=== PATIENT | female | born 1990 | race Caucasian/White ===

== ENCOUNTER → 2018-03-04 | Outpatient (CLI) | payer OTHER ==
[2018-03-04 14:01] LABS: BASO # 0.1 10^3/uL (0.0-0.2); BASO % 0.7 % (0.0-1.0); EOS # 0.1 10^3/uL (0.0-0.50); EOS % 0.9 % (0.0-3.0); HEMATOCRIT 39.3 % (36.0-47.0); HEMOGLOBIN 13.1 g/dl (12.0-15.5); IMMATURE GRANULOCYTE % 0.6 % (0-3.0); LYMPH # 2.1 10^3/uL (1.5-6.5); LYMPH % 25.5 % (24.0-44.0); MEAN CORPUSCULAR HGB CONC 33.3 g/dl (32.0-36.5); MEAN CORPUSCULAR VOLUME 93.1 fl (80.0-96.0); MONO # 0.7 10^3/uL (0.0-0.8); MONO % 8.7 % (0.0-5.0); NEUTROPHILS # 5.2 10^3/uL (1.8-7.7); NEUTROPHILS % 63.6 % (36.0-66.0); PLATELET COUNT, AUTOMATED 339 10^3/uL (150-450); RED BLOOD COUNT 4.22 10^6/uL (4.00-5.40); RED CELL DISTRIBUTION WIDTH 11.9 % (11.5-14.5); WHITE BLOOD COUNT 8.2 10^3/uL (4.0-10.0)
[2018-03-04 17:27] LABS: CHLAMYDIA DNA AMPLIFICATION NEGATIVE (NEGATIVE); GC DNA AMPLIFICATION NEGATIVE (NEGATIVE)
[2018-03-05 12:44] LABS: RUBELLA IgG QUALITATIVE IMMUNE (IMMUNE)
[2018-03-05 13:03] LABS: HBsAg Prenatal NEGATIVE (NEGATIVE)
[2018-03-05 13:14] LABS: HEPATITIS C VIRUS ABY INDEX < 0.0 INDEX (<0.8)
[2018-03-05 13:15] LABS: HIV 1&2 SCREEN CENTAUR NEGATIVE (NEGATIVE)
== END ==
LOC: M SMT 09:56
DX: Z34.81 Encounter for supervision of other normal pregnancy, first trimester (principal); Z3A.10 10 weeks gestation of pregnancy
CPT/HCPCS: 86762

== ENCOUNTER → 2018-05-21 | Outpatient (CLI) | payer OTHER | LOC: M RAD 14:21 | DX: Z34.82 Encounter for supervision of other normal pregnancy, second trimester (principal) | CPT/HCPCS: 76817 ==

== ENCOUNTER → 2018-06-09 | Outpatient (CLI) | payer OTHER | LOC: M RAD 15:19 | DX: Z34.82 Encounter for supervision of other normal pregnancy, second trimester (principal) | CPT/HCPCS: 76816 ==

== ENCOUNTER → 2018-07-05 | Outpatient (CLI) | payer OTHER ==
[2018-07-05 13:14] LABS: BASO # 0.1 10^3/uL (0.0-0.2); BASO % 0.5 % (0.0-1.0); EOS # 0.1 10^3/uL (0.0-0.50); EOS % 0.8 % (0.0-3.0); HEMATOCRIT 36.6 % (36.0-47.0); HEMOGLOBIN 12.2 g/dl (12.0-15.5); IMMATURE GRANULOCYTE % 0.8 % (0-3.0); LYMPH # 1.6 10^3/uL (1.5-6.5); MEAN CORPUSCULAR HEMOGLOBIN 30.7 pg (27.0-33.0); MEAN CORPUSCULAR HGB CONC 33.3 g/dl (32.0-36.5); MEAN CORPUSCULAR VOLUME 92.2 fl (80.0-96.0); MONO # 0.4 10^3/uL (0.0-0.8); MONO % 3.9 % (0.0-5.0); NEUTROPHILS # 7.4 10^3/uL (1.8-7.7); PLATELET COUNT, AUTOMATED 299 10^3/uL (150-450); RED BLOOD COUNT 3.97 10^6/uL (4.00-5.40); RED CELL DISTRIBUTION WIDTH 12.4 % (11.5-14.5); WHITE BLOOD COUNT 9.6 10^3/uL (4.0-10.0)
[2018-07-05 13:34] LABS: GLUCOSE CHALLENGE TEST 1 HOUR 159 MG/DL (LESS THAN 140)
== END ==
LOC: M SMT 09:06
DX: Z34.82 Encounter for supervision of other normal pregnancy, second trimester (principal)
CPT/HCPCS: 82950

== ENCOUNTER → 2018-08-30 | Outpatient (REF) | payer OTHER | LOC: M LAB REF 17:09 | DX: Z34.83 Encounter for supervision of other normal pregnancy, third trimester (principal) ==

== ENCOUNTER 2018-09-13 05:48 | Inpatient (IN) | payer OTHER ==
[2018-09-13] MEDS: OXYTOCIN INJ 10 UNITS/ML VIAL (J2590) IM (06:08)
[2018-09-13] MEDS: OXYTOCIN DRIP 30 UNITS in APPROPRIATE DILUENT 1 EA IV (06:15)
[2018-09-13] MEDS ORDERED: OXYTOCIN 30 UNITS IN 0.9% NaCl 500ML IV BAG (J2590) As Ordered (06:16)
[2018-09-13] MEDS ORDERED: DOCUSATE SODIUM 100 MG CAP PO (07:15)
[2018-09-13] MEDS ORDERED: METHYLERGONOVINE MALEATE 0.2 MG TAB PO (07:15)
[2018-09-13] MEDS ORDERED: ANUSOL HC CREAM 30GM TOP (07:15)
[2018-09-13] MEDS ORDERED: DIBUCAINE 1% OINTMENT 30GM TOP (07:15)
[2018-09-13] MEDS ORDERED: MOM 30ML SUSPENSION UDC PO (07:15)
[2018-09-13] MEDS: IBUPROFEN 800 MG TAB PO ×2 (07:41→22:25)
[2018-09-13] MEDS: PRENATAL VITAMINS CHEWABLE TABLET PO (09:00)
[2018-09-13] MEDS: MEASLES,MUMPS,RUBELLA VACCINE INJ (MMR-II) (90707) SC (09:33)
[2018-09-13] MEDS: RHOGAM 300 MCG (1500 IU) INJ (J2790) IM (09:33)
[2018-09-13] MEDS: ACETAMINOPHEN 500 MG TAB PO (14:09)
[2018-09-14] MEDS: ACETAMINOPHEN 500 MG TAB PO (05:25)
[2018-09-14] MEDS: PRENATAL VITAMINS CHEWABLE TABLET PO (08:11)
[2018-09-14] MEDS: INFLUENZA QUADRIVALENT PF VACCINE 0.5ML SYRINGE (90686) IM (09:00)
[2018-09-14] MEDS: IBUPROFEN 800 MG TAB PO (18:11)
[2018-09-15] MEDS: PRENATAL VITAMINS CHEWABLE TABLET PO (08:41)
== END 2018-09-15 11:34 | disposition home or self-care (01) | DRG 560 ==
LOC: M LDO 05:48 → M LDI 06:04 → M OBS 09:20
PROVIDERS: Obstetrics & Gynecology
PROC: 10E0XZZ Delivery of Products of Conception, External Approach (ICD-10-PCS; principal; 2018-09-13)
DX: O80 Encounter for full-term uncomplicated delivery (principal); Z37.0 Single live birth; Z3A.37 37 weeks gestation of pregnancy

== ENCOUNTER → 2019-04-12 | Outpatient (CLI) | payer OTHER ==
[~2019-04-12] MED LIST: IBUP-1114 PO; MAPA500T2 PO; PRENTAB9 PO
--- NOTE | 2019-04-12 16:45 | REP ---
MR THORACIC SPINE WITHOUT CONTRAST: HISTORY: Back pain. A small central disc protrusion is present at the T8-9 level. This abuts the spinal cord. The T8 neural foramina are patent. A small right paracentral disc protrusion is present at the T9-10 level. This abuts the spinal cord. The T9 neural foramina are patent. A small left paracentral disc protrusion is present at the T10-11 level. There is minimal effacement of the thecal sac without spinal cord compression. The T10 neural foramina are patent. There is no other disc bulge or herniation. The remaining neural foramina are patent. The spinal cord is normal in signal intensity. There is an old compression fracture of the T11 vertebral body with mild height loss. There is no subluxation. Increased signal intensity on T2 weighted images is present in the endplates of the T11 and 12 vertebral bodies. This represents degenerative change. IMPRESSION:1. Small disc protrusion at the T8-9 through T10-11 levels without spinal cord compression. 2. Old T11 compression fracture with mild height loss. Electronically Signed by Ron Peacock MD 04/12/2019 04:59 P
== END ==
LOC: M RAD 15:13
PROVIDERS: ATTEND Family Medicine
DX: S22.060D Wedge compression fracture of T7-T8 vertebra, subsequent encounter for fracture with routine healing (principal); X58.XXXD Exposure to other specified factors, subsequent encounter; Y92.9 Unspecified place or not applicable; M51.24 Other intervertebral disc displacement, thoracic region

== ENCOUNTER → 2019-10-27 | Outpatient (REF) | payer OTHER | LOC: M SFHCWAGY 17:29 | PROVIDERS: ATTEND Obstetrics & Gynecology | DX: Z01.419 Encounter for gynecological examination (general) (routine) without abnormal findings (principal) ==

== ENCOUNTER → 2020-08-13 | Outpatient (CLI) | payer OTHER ==
[2020-08-13 16:28] LABS: BASO % 0.5 % (0.0-1.0); EOS # 0.1 10^3/uL (0.0-0.5); EOS % 0.6 % (0.0-3.0); HEMATOCRIT 41.4 % (36.0-47.0); HEMOGLOBIN 13.5 g/dl (12.0-15.5); LYMPH # 1.9 10^3/uL (1.5-5.0); LYMPH % 24.7 % (24.0-44.0); MEAN CORPUSCULAR HEMOGLOBIN 30.3 pg (27.0-33.0); MEAN CORPUSCULAR HGB CONC 32.6 g/dl (32.0-36.5); MONO # 0.5 10^3/uL (0.0-0.8); MONO % 6.4 % (0.0-5.0); NEUTROPHILS # 5.3 10^3/uL (1.5-8.5); NEUTROPHILS % 67.2 % (36.0-66.0); PLATELET COUNT, AUTOMATED 379 10^3/uL (150-450); RED BLOOD COUNT 4.45 10^6/uL (4.00-5.40); WHITE BLOOD COUNT 7.8 10^3/uL (4.0-10.0)
[2020-08-13 17:22] LABS: HEPATITIS C VIRUS ABY INDEX 0.1 INDEX (<0.8); HIV 1&2 SCREEN CENTAUR NEGATIVE (NEGATIVE)
== END ==
LOC: M PLALAB 12:30
PROVIDERS: ATTEND Advanced Practice Midwife
DX: Z34.91 Encounter for supervision of normal pregnancy, unspecified, first trimester (principal); Z3A.00 Weeks of gestation of pregnancy not specified

== ENCOUNTER → 2020-10-09 | Outpatient (CLI) | payer OTHER ==
--- NOTE | 2020-10-09 10:16 | REP ---
INDICATION: ANATOMY. TECHNIQUE: Real-time sonographic evaluation of the gravid uterus performed. FINDINGS: Estimated gestational age is18 weeks 4 days, EDC 03/08/2021. Today's measurements indicate appropriate growth. Presentation: Transverse, head maternal right side Placenta anterior, grade 0, without evidence of placenta previa. heart rate is recorded at 143 beats per minute. Amniotic fluid is subjectively normal. Closed cervical length is measured at 4.6 cm. Several anterior uterine fibroids are visualized. Largest measures 5.7 x 6.0 x 4.6 cm. Four others demonstrate maximum diameters of 3.4 cm, 4.1 cm, 3.1 cm and 2.7 cm. Biometry chart: BPD: 41 mm, 18 weeks 3 days, 46th percentile. HC: 156 mm, 18 weeks 4 days, 47th percentile AC: 129 mm, 18 weeks 3 days, 47th percentile Femur length: 28 mm, 18 weeks 3 days, 47th percentile HC to AC ratio: 1.20, normal range 1.07-1.26. Estimated weight: 242g, 38th percentile. anatomy: Cranium: Grossly normal Lateral Ventricles/Choroid Plexus: There are bilateral choroid plexus cysts. These measure approximately 8 x 4 and 7 x 4 mm. There is no dilatation of lateral ventricles. Posterior Fossa/Cerebellum: Grossly normal Nose/lips/profile: Not well visualized due to position. Four chamber heart: Grossly normal Right ventricular outflow tract: Grossly normal Left ventricular outflow tract: Grossly normal Left-sided stomach: Grossly normal Kidneys: Not well visualized due to position. Bladder: Grossly normal Cord Insertion: Grossly normal 3 vessel cord: Grossly normal Spine: Not well visualized due to position. IMPRESSION: Viable single intrauterine gestation as above. <Electronically signed by Nitish Navarro > 10/09/20 [id number]
== END ==
LOC: M WHC 07:53
PROVIDERS: ATTEND Advanced Practice Midwife
DX: O34.12 Maternal care for benign tumor of corpus uteri, second trimester (principal); Z3A.18 18 weeks gestation of pregnancy

== ENCOUNTER → 2020-10-22 | Outpatient (CLI) | payer OTHER ==
--- NOTE | 2020-10-22 10:39 | REP ---
INDICATION: F/U ANATOMY. On the of previous ultrasound dated 10/09/2020 there were bilateral choroid plexus cysts, and the spine was not optimally visualized, and the nose/lips and kidneys were not optimally visualized. The remainder of the anatomy was satisfactorily visualized and unremarkable. . COMPARISON: 10/09/2020. TECHNIQUE: Multiple real-time ultrasonographic images. FINDINGS: On the study today, there are again bilateral choroid plexus cysts. However, today there appear to be 2 small cysts on one side measuring approximately 4 mm in diameter each, and a single cyst on the opposite side, today measuring 3 x 4 mm. The facial profile and upper lip are unremarkable today. The kidneys are unremarkable. The transverse images of the spine are again limited. Multiple uterine fibroids are again identified, today we identify 3 fibroids as follows: Anterior: 6.1 x 6.6 x 3.5 cm. Anterior: 3.7 x 3.0 x 1.8 cm. Anterior/left: 4.2 x 4.1 x 3.8 cm. The study today is again limited by patient body habitus, position, and multiple uterine fibroids. There is a single intrauterine gestation in a cephalic presentation. Placenta is anterior and grade 1. There is no previa. The heart rate is 134 beats per minute. The composite ultrasound gestational age his 20 weeks 5 days. The SHANA is 03/06/2021. Estimated weight is 407 g / 0 lb, 14 oz. This is the 56th percentile for 20 weeks 3 days. IMPRESSION: Bilateral choroid plexus cysts as described. Limited transverse images of the spine. Multiple uterine fibroids are again identified. The facial profile, upper lip and kidneys are unremarkable. <Electronically signed by Nitish Chao > 10/22/20 [id number]
== END ==
LOC: M WHC 08:07
PROVIDERS: ATTEND Obstetrics & Gynecology
DX: O34.12 Maternal care for benign tumor of corpus uteri, second trimester (principal); Z3A.20 20 weeks gestation of pregnancy

== ENCOUNTER 2020-11-15 23:30 | Inpatient (IN) | payer OTHER ==
[2020-11-15 23:34] VITALS: BP 151/87
[2020-11-15] MEDS ORDERED: MAG Sulf (OBGYN) 20GM/500ML 20,000 MG in IV 1 EA IV SCH (23:50)
[2020-11-16] MEDS ORDERED: AZITHROMYCIN 250MG TABLET PO ONE
[2020-11-16] MEDS ORDERED: BETAMETHASONE SOLUSPAN 6MG/ML 5ML VIAL (J0702 PER 3MG) IM SCH
[2020-11-16] MEDS ORDERED: MAG Sulf (L&D) 4 GM/100 ML 4 GM in IV 1 EA IV ONE ×2
[2020-11-16] MEDS ORDERED: AMPICILLIN SOD 2 GM in D5W MINI-BAG PLUS 100 ML IV SCH ×2
[2020-11-16] MEDS ORDERED: ceFAZolin 2 GM/D5W 50 ML IV BAG (J0690 PER 500MG) As Ordered ONE (00:18)
[2020-11-16] MEDS ORDERED: KETOROLAC 60MG 2ML VIAL As Ordered ONE (00:30)
[2020-11-16] MEDS ORDERED: propofoL 200 MG/20 ML VIAL As Ordered ONE (00:30)
[2020-11-16] MEDS ORDERED: fentaNYL 100 MCG/2 ML INJECTION (J3010) As Ordered ONE ×3 (00:30→01:25)
[2020-11-16] MEDS ORDERED: ONDANSETRON 4MG/2ML VIAL As Ordered ONE (00:30)
[2020-11-16] MEDS ORDERED: MIDAZOLAM INJ 2MG/2ML VIAL (J2250 PER 1MG) As Ordered ONE (00:30)
[2020-11-16 00:31] LABS: CORD GAS ABE V -3.6; CORD GAS HCO3 A 22.4 MEQ/L; CORD GAS HCO3 V 21.8 MEQ/L; CORD GAS O2 SAT A 96.9 %; CORD GAS O2 SAT V 92.8 %; CORD GAS PCO2 A 41.5 mmHg; CORD GAS PCO2 V 40.8 mmHg; CORD GAS PH A 7.351 UNITS; CORD GAS PH V 7.346 UNITS; CORD GAS PO2 A 65.4 mmHg; CORD GAS PO2 V 52.1 mmHg; CORD GAS SBC V 21.4 MEQ/L; CORD GAS TCO2 A 23.7 MEQ/L; CORD GAS TCO2 V 23.1 MEQ/L
[2020-11-16] MEDS ORDERED: METOCLOPRAMIDE INJ 10MG/2ML VIAL (J2765 PER 1) As Ordered ONE (00:31)
[2020-11-16] MEDS ORDERED: dexameTHASONE 4 MG/ML 1ML VIAL (J1100 PER 1MG) As Ordered ONE (00:31)
[2020-11-16] MEDS ORDERED: LR 1,000 ML IV SCH ×3 (01:03→01:30)
[2020-11-16] MEDS: fentaNYL 100 MCG/2 ML INJECTION (J3010) IV PRN ×4 (01:05→01:30)
[2020-11-16] MEDS ORDERED: OXYTOCIN DRIP 30 UNITS in IV 1 EA IV SCH (01:07)
[2020-11-16] MEDS ORDERED: MEASLES,MUMPS,RUBELLA VACCINE INJ (MMR-II) (90707) SC SCH (01:15)
[2020-11-16] MEDS ORDERED: PERCOCET 5MG/325MG TAB PO PRN ×2 (01:15→01:30)
[2020-11-16] MEDS ORDERED: MORPHINE 4 MG/ML 1ML VIAL/SYRINGE (J2270) IV PRN (01:15)
[2020-11-16] MEDS ORDERED: DOCUSATE SODIUM 100MG CAPSULE PO PRN (01:15)
[2020-11-16] MEDS ORDERED: RHOGAM 300 MCG (1500 IU) INJ (J2790) IM SCH (01:15)
[2020-11-16] MEDS ORDERED: ONDANSETRON 4MG/2ML VIAL IV PRN (01:30)
[2020-11-16] MEDS ORDERED: KETOROLAC 30 MG/ML 1ML VIAL IV PRN (01:30)
[2020-11-16] MEDS ORDERED: OXYTOCIN 30 UNITS IN 0.9% NaCl 500ML IV BAG (J2590) As Ordered ONE (01:33)
--- NOTE | 2020-11-16 01:38 | REPVR ---
PROCEDURE INFORMATION: Exam: XR Abdomen, 1 View Exam date and time: 11/16/2020 1:01 AM Age: 30 years old Clinical indication: Screening exam; Post surgical status; Emergency , no instrument count; Additional info: No count, stat c section TECHNIQUE: Imaging protocol: XR of the abdomen. Views: Frontal supine view of the abdomen. 1 View. COMPARISON: No relevant prior studies available. FINDINGS: Limitations: Upper abdomen is partially cut off the film. Gastrointestinal tract: Copious stool in the colon. No abnormal bowel dilatation. Bones/joints: Unremarkable. Radiopaque foreign body: No surgical instrument, lap sponge or surgical needle seen. IMPRESSION: 1. No surgical instrument, lap sponge or surgical needle seen. 2. Copious stool in the colon. Electronically signed by: Leslee Ontiveros On 11/16/2020 01:38:28 AM
--- NOTE | 2020-11-16 01:39 | HPEPDOC ---
Obstetrical History & Physical General Date of Admission Nov 16, 2020 at 00:06 History of Present Illness 30 yo at 23 6/7 weeks gestation by LMP c/w 10 week ultrasound (EDC=03/08/2020 presents by ambulance after experiencing a gush of fluid per vagina, followed by vaginal bleeding. She passed several clots. She had mild lower abdominal cramping. The incident occurred at about 10:30 pm on the day of admission. Information Provided By: Patient Care Care: Good Care Number of Visits: 3 Dating Final EDC: Mar 08, 2021 Final EDC by: LMP, 1st trimester (US) Antepartum Course Diagnos(e)s uterine fibroids Past Medical History Past Obstetrical History : Past Obstetrical History: Multigravida Date of Delivery: Sep 13, 2020 Type of Delivery: Spontaneous Vaginal Del. Sex of : Male Complications: No GUARD CHIEF History: Uterine fibroids Past Medical History Medical History Medical hx: Multiple uterine fibroids Surgical hx: Appendectomy tonsillectomy Family History Significant Family History: Hypertension Social History Marital Status: Single Family situation: Spouse/partner home Psychosocial History: No pertinent psych hx * Smoker: non-smoker Alcohol: Denies Allergies Coded Allergies: No Known Allergies (Verified , 06/20/05) Medications Scheduled Ibuprofen (Ibuprofen) 400 Mg Tab, 800 MG PO Q8H No.137/Iron/Folic Acd ( Vitamin Tablet) 1 Tab Tab, 1 TAB PO DAILY Scheduled PRN Acetaminophen (Mapap) 500 Mg Tab, 1,000 MG PO Q6HP PRN for PAIN Physical Examination Physical Examination GENERAL: Alert and oriented times three. BREAST: . ABDOMEN: Gravid and non-tender to touch. FETUS: Is vertex (VTX) by sterile vaginal examination (SVE), fetus is vertex (VTX) by Jorge. HEART RATE: Regular rate and rhythm. LUNGS: Clear to auscultation (CTA). EXTREMITIES: No edema. No clonus. Deep tendon reflexes (DTRs) + . Laboratory Data 24H LABS Laboratory Tests 2 11/15/20 23:40: 11/16/20 00:16: Cord Arterial Blood pH 7.351, Cord Arterial Blood PCO2 41.5, Cord Arterial Blood PO2 65.4, Cord Arterial Blood HCO3 22.4, Cord Arterial Blood Total CO2 23.7, Cord Arterial Blood Base Excess -3.0, Cord Arterial Base Excess (Standard 22.0, Cord Arterial Bld Oxygen Saturation 96.9, Cord Venous Blood pH 7.346, Cord Venous Blood PCO2 40.8, Cord Venous Blood PO2 52.1, Cord Venous Blood HCO3 21.8, Cord Venous Blood Total CO2 23.1, Cord Venous Base Excess (Actual) -3.6, Cord Venous Base Excess (Standard) 21.4, Cord Venous Blood Oxygen Saturation 92.8 Vaginal Examination Dilation: None Position: Breech (sacrum) Assessment Heart Rate (FHR): 130 Tocometer Contractions: No Assessment/Plan Assessment Pt is a 30-year-old (G)2 para (P)2 at 23+6 weeks by 10-week ultrasound c/w LMP presents to Labor and Delivery with premature rupture of membranes and placental abruption Plan Admit and orient. Plan steroids Plan latency antibiotics Plan Magnesium for neuroprotection If heart rate is stable, will consider transfer to [facility] FHT difficult to trace due to early gestation, and fiboids RODERICK LOZA MD Nov 16, 2020 01:39
[2020-11-16 02:12] LABS: HEMATOCRIT 35.9 % (36.0-47.0); HEMOGLOBIN 11.6 g/dl (12.0-15.5); MEAN CORPUSCULAR HEMOGLOBIN 28.9 pg (27.0-33.0); MEAN CORPUSCULAR HGB CONC 32.3 g/dl (32.0-36.5); MEAN CORPUSCULAR VOLUME 89.5 fl (80.0-96.0); PLATELET COUNT, AUTOMATED 383 10^3/uL (150-450); RED BLOOD COUNT 4.01 10^6/uL (4.00-5.40); WHITE BLOOD COUNT 15.3 10^3/uL (4.0-10.0)
[2020-11-16 02:30] VITALS: BP 120/58
[2020-11-16] MEDS: PERCOCET 5MG/325MG TAB PO PRN ×4 (02:33→22:46)
--- NOTE | 2020-11-16 03:24 | IPNPDOC ---
Obstetrical Progress Note Date of Service Nov 16, 2020 Subjective 30 yo at 23 6/7 weeks presents by ambulance with ruptured membranes and placental abruption. There was difficulty obtaining an NST due to early gestational age ,and presence of large fibroids. FH documented by ultrasound at bedside initially. When there was still difficulty getting an NST, I repeated the ultrasound. heart rate bradycardia was noted. Decision made to offer emergency section. Pt verbally consented to . I was not optimistic about survival chances of the fetus in this scenario. Plans made for immediate . Objective Vital Signs Date Time Temp Pulse Resp B/P (MAP) Pulse Ox O2 Delivery O2 Flow Rate FiO2 11/16/20 02:33 18 11/16/20 01:55 97.2 89 143/93 (110) 96 Room Air 11/16/20 01:05 100 RODERICK LOZA MD Nov 16, 2020 03:24
[2020-11-16 03:38] LABS: ALT/SGPT 19 U/L (12-78); BILIRUBIN,TOTAL 0.1 MG/DL (0.2-1.0); CREATININE FOR GFR 0.75 MG/DL (0.55-1.30); GLOMERULAR FILTRATION RATE > 60.0 (>60); LDH LACTATE DEHYDROGENASE 162 U/L (84-246); URIC ACID 3.1 MG/DL (2.6-6.0)
[2020-11-16 04:15] LABS: TOTAL PROTEIN,RANDOM URINE 30.7 MG/DL (0.0-12.0)
[2020-11-16 05:56] VITALS: BP 117/64
--- NOTE | 2020-11-16 06:01 | ROOPDOC ---
[facility] Report Of Operation Report of Operation DATE OF PROCEDURE: 11/16/20 PREPROCEDURE DIAGNOSES: 23 6/7 weeks, Premature rupture of membranes, placental abruption, uterine fibroids, bradycardia. POSTPROCEDURE DIAGNOSES: same. PROCEDURE: emergency primary classical section SURGEON: Roderick Loza MD ANESTHESIA: GETA ESTIMATED BLOOD LOSS: Approximately 500 mL. Findings: Non-viable male fetus, breech, placental abruption noted, numerous uterine fibroids COMPLICATIONS: none. Summary: The patient was taken to the OR where general endotracheal anesthesia was induced. A Contreras Catheter was placed. A splash prep with Betadine was performed. A Pfannenstiel skin incision was created with a scalpel. The fascia was nicked and extended. The peritoneal cavity was entered. A Mobius retractor was placed. A vertical uterine incision was created with a scalpel. The was delivered from the breech position without difficulty. The cord was doubly clamped and cut. The infant was handed to the awaiting automobile service station manager. The placenta was expressed. The uterus was closed with O-Vicryl in a running locked fashion. A second imbricating layer was placed. The peritoneum was closed with 2-O chromic in a running fashion. The fascia was closed with O-Vicryl in a running fashion. The deep layer was irrigated. The skin was closed with 4-O Monocryl in a running fashion. An x-ray was performed since no counts were done due to the emergent nature of the procedure. RODERICK LOZA MD Nov 16, 2020 06:01
[2020-11-16] MEDS: KETOROLAC 30 MG/ML 1ML VIAL IV SCH ×3 (06:48→18:43)
[2020-11-16 08:00] LABS: HEMATOCRIT 25.4 % (36.0-47.0); MEAN CORPUSCULAR HEMOGLOBIN 29.4 pg (27.0-33.0); MEAN CORPUSCULAR HGB CONC 31.5 g/dl (32.0-36.5); MEAN CORPUSCULAR VOLUME 93.4 fl (80.0-96.0); PLATELET COUNT, AUTOMATED 315 10^3/uL (150-450); RED BLOOD COUNT 2.72 10^6/uL (4.00-5.40); WHITE BLOOD COUNT 21.1 10^3/uL (4.0-10.0)
--- NOTE | 2020-11-16 08:38 | IPNPDOC ---
Progress Note Date of Service: Nov 16, 2020 Progress Note SUBJECT: Pt is a 30-year-old s/p emergency at 23 6/7 weeks for abruption, bradycardia resulting in stillborn fetus. Pain improved. OBJECTIVE: VITAL SIGNS: Within normal limits, afebrile. Alert and oriented times three. Breath sounds clear to auscultation. Heart rate: Regular rate and rhythm, no murmurs, rubs or gallops. Abdomen: Fundus firm at U-2. Soft, NTTP. [Minimal] lochia. Hb=8.0 g/dl ASSESSMENT:POD#0 s/p stillborn fetus at 23 6/7 weeks PLAN: Start Wellbutrin xl 150 advance diet d/c Ben discussed delivery; would recommend myomectomy prior to trying for again VS, I&O, 24H, Alina Vital Signs/I&O Vital Signs Date Time Temp Pulse Resp B/P (MAP) Pulse Ox O2 Delivery O2 Flow Rate FiO2 11/16/20 05:56 97.0 96 18 117/64 (81) 99 Room Air 11/16/20 01:05 100 I&O- Last 24 Hours up to 6 AM 11/16/20 06:00 Intake Total 2240 ml Output Total 1400 ml Balance 840 ml Laboratory Data 24H LABS Laboratory Tests 2 11/15/20 23:40: Nucleated Red Blood Cells % (auto) 0.0, Glomerular Filtration Rate > 60.0, Uric Acid 3.1, Total Bilirubin 0.1L, Aspartate Amino Transf (AST/SGOT) 12, Alanine Aminotransferase (ALT/SGPT) 19, Lactate Dehydrogenase 162 11/16/20 00:16: Cord Arterial Blood pH 7.351, Cord Arterial Blood PCO2 41.5, Cord Arterial Blood PO2 65.4, Cord Arterial Blood HCO3 22.4, Cord Arterial Blood Total CO2 23.7, Cord Arterial Blood Base Excess -3.0, Cord Arterial Base Excess (Standard 22.0, Cord Arterial Bld Oxygen Saturation 96.9, Cord Venous Blood pH 7.346, Cord Venous Blood PCO2 40.8, Cord Venous Blood PO2 52.1, Cord Venous Blood HCO3 21.8, Cord Venous Blood Total CO2 23.1, Cord Venous Base Excess (Actual) -3.6, Cord Venous Base Excess (Standard) 21.4, Cord Venous Blood Oxygen Saturation 92.8 11/16/20 03:41: Urine Random Creatinine 174.0, Urine Random Total Protein 30.7H 11/16/20 07:32: Nucleated Red Blood Cells % (auto) 0.0 CBC/BMP Laboratory Tests 11/15/20 23:40 11/16/20 07:32 RODERICK LOZA MD Nov 16, 2020 08:38
[2020-11-16] MEDS: PRENATAL VITAMINS CHEWABLE TABLET PO SCH (08:54)
[2020-11-16] MEDS ORDERED: buPROPion **XL** TABLET 150MG (WELLBUTRIN XL) PO SCH (09:00)
[2020-11-16 10:33] VITALS: BP 118/57
[2020-11-16 14:03] VITALS: BP 134/60
[2020-11-16 18:08] VITALS: BP 121/65
[2020-11-16] MEDS: buPROPion **XL** TABLET 150MG (WELLBUTRIN XL) PO SCH (20:39)
[2020-11-16 22:00] VITALS: BP 130/73
[2020-11-17 02:30] VITALS: BP 133/67
[2020-11-17] MEDS ORDERED: IBUPROFEN 800 MG TAB PO SCH (03:00)
[2020-11-17 06:00] VITALS: BP 131/77
[2020-11-17] MEDS: PERCOCET 5MG/325MG TAB PO PRN (07:39)
--- NOTE | 2020-11-17 08:23 | DS.PDOC ---
Discharge Summary General Date of Admission Nov 16, 2020 at 00:06 Date of Discharge 11/17/20 Discharge Summary PROCEDURES PERFORMED DURING STAY: Primary Classical C/Section. ADMITTING DIAGNOSES: 1. Placental abruption. 2. IUP at 23.6wks DISCHARGE DIAGNOSES: 1. Postoperative C/Section Day 1. 2. Stillbirth at 23.6 wks COMPLICATIONS/CHIEF COMPLAINT: Labor Check. HISTORY OF PRESENT ILLNESS: Radha is a 30 y/o status post C/Section at 23.6wks ending in a stillbirth due to placental abruption. Reports ambulating well around the room, passing flatus, tolerating regular diet without issue. Voiding without difficulty. Pain well controlled with Motrin and Percoc et. Lochia minimal. Declined starting Depo today. She is teary on and off today, declined depression medication at this time. Teary on and off, but reports she is doing well most of the time. Reports strong support system of family and friends at home, at bedside and supportive. Desires a myomectomy of fibroids once she is healed from C/Section, encouraged her to discuss this with physician at follow up appointments. Desires discharge home today. HOSPITAL COURSE: . DISCHARGE MEDICATIONS: Please see below. ALLERGIES: Please see below. PHYSICAL EXAMINATION ON DISCHARGE: VITAL SIGNS: Please see below. GENERAL: Alert and oriented x3, teary on and off. HEENT: Normal on inspection. NECK: Supple, no JVD. CARDIOVASCULAR EXAMINATION: Pulses regular, +2 bilaterally radial. RESPIRATORY EXAMINATION: Respirations regular, no accessory muscle use. ABDOMINAL EXAMINATION: Soft, not distended, Fundus firm at U-2. Dressing dry and intact, bleeding noted on dressing no change since yesterday. EXTREMITIES: No edema, negative clonus, DTRs +2, negative calf tenderness. SKIN: [place], intact, dry. NEUROLOGICAL EXAMINATION: Grossly intact. No headache. PSYCHIATRIC EXAMINATION: Teary on and off, upset about the outcome of still but declines medications at this time. States she has good support with family at home. LABORATORY DATA: Please see below. PROGNOSIS: Good. ACTIVITY: As tolerated. DIET: Regular DISCHARGE PLAN: Home DISPOSITION: Stable. DISCHARGE INSTRUCTIONS: 1. Percocet and Motrin as needed, sent to pharmacy. 2. Reviewed S/S of preeclampsia, depression, DVT/PE, endometritis, mastitis, methods for drying up breast milk, pain management at home. ITEMS TO FOLLOWUP ON ON OUTPATIENT: 1. Follow up in 2 weeks for incision check. 2. Follow up in 6-8 weeks for check. DISCHARGE CONDITION: Stable. TIME SPENT ON DISCHARGE: Greater than 15 minutes. Vital Signs/I&Os Vital Signs Date Time Temp Pulse Resp B/P (MAP) Pulse Ox O2 Delivery O2 Flow Rate FiO2 11/17/20 07:39 18 11/17/20 06:00 98.2 102 131/77 (95) 97 Room Air 11/16/20 01:05 100 I&O- Last 24 Hours up to 6 AM 11/17/20 06:00 Output Total 1450 ml Balance -1450 ml Discharge Medications Scheduled Ibuprofen (Ibuprofen) 400 Mg Tab, 800 MG PO Q8H, (Reported) No.137/Iron/Folic Acd ( Vitamin Tablet) 1 Tab Tab, 1 TAB PO DAILY, (Reported) Scheduled PRN Acetaminophen (Mapap) 500 Mg Tab, 1,000 MG PO Q6HP PRN for PAIN, (Reported) Allergies Coded Allergies: No Known Allergies (Verified , 06/20/05) IHSAN GOODE CNM Nov 17, 2020 08:23
[2020-11-17] MEDS: PRENATAL VITAMINS CHEWABLE TABLET PO SCH (09:00)
[2020-11-17] MEDS: buPROPion **XL** TABLET 150MG (WELLBUTRIN XL) PO SCH (09:00)
[2020-11-17] MEDS ORDERED: PERCOCET PO ×2 (09:03→09:10)
[2020-11-17] MEDS ORDERED: IBUP80TA PO (09:03)
== END 2020-11-17 09:33 | disposition home or self-care (01) | DRG 540 ==
LOC: M LDO 23:30 → M LDI 11-16 00:06 → M OBS 11-16 01:00
PROVIDERS: ADMIT Specialist; ATTEND Specialist
PROC: 10D00Z0 Extraction of Products of Conception, High, Open Approach (ICD-10-PCS; principal; 2020-11-16)
DX: O42.012 Preterm premature rupture of membranes, onset of labor within 24 hours of rupture, second trimester (principal); Z3A.23 23 weeks gestation of pregnancy; O45.92 Premature separation of placenta, unspecified, second trimester; O32.1XX0 Maternal care for breech presentation, not applicable or unspecified; Z37.1 Single stillbirth; O34.12 Maternal care for benign tumor of corpus uteri, second trimester; O76 Abnormality in fetal heart rate and rhythm complicating labor and delivery

== ENCOUNTER → 2021-02-03 | Outpatient (CLI) | payer OTHER ==
[~2021-02-03] MED LIST changes: +BUPR150T5 PO; +IBUP80TA PO; +PERCOCET PO
== END ==
LOC: M LABSMTC 10:40
PROVIDERS: ATTEND Anesthesiology
DX: Z01.812 Encounter for preprocedural laboratory examination (principal)

== ENCOUNTER 2021-02-08 10:43 | Day surgery (SDC) | payer OTHER ==
[~2021-02-08] VITALS: Ht 165.1 cm; Wt 104.0 kg
[~2021-02-08 10:43] MED LIST changes: +LR 1,000 ML IV ONE; +ceFAZolin SOD 2 GM in IV 1 EA IV ONE
[2021-02-08] MEDS ORDERED: VASOPRESSIN INJ 20 UNITS/ML VIAL As Ordered ONE (11:37)
[2021-02-08] MEDS ORDERED: BUPIVACAINE HCL 0.25% 10ML VIAL As Ordered ONE (11:37)
[2021-02-08 11:38] LABS: HEMATOCRIT 43.6 % (36.0-47.0); HEMOGLOBIN 13.9 g/dl (12.0-15.5); MEAN CORPUSCULAR HEMOGLOBIN 29.2 pg (27.0-33.0); MEAN CORPUSCULAR HGB CONC 31.9 g/dl (32.0-36.5); MEAN CORPUSCULAR VOLUME 91.6 fl (80.0-96.0); PLATELET COUNT, AUTOMATED 294 10^3/uL (150-450); RED BLOOD COUNT 4.76 10^6/uL (4.00-5.40); WHITE BLOOD COUNT 6.8 10^3/uL (4.0-10.0)
[2021-02-08] MEDS ORDERED: LIDOCAINE 2% 100MG/5ML SDV (FOR ANES.) As Ordered ONE (12:12)
[2021-02-08] MEDS ORDERED: ONDANSETRON 4MG/2ML VIAL As Ordered ONE ×2 (12:12→16:30)
[2021-02-08] MEDS ORDERED: propofoL 200 MG/20 ML VIAL As Ordered ONE (12:12)
[2021-02-08] MEDS ORDERED: dexameTHASONE 4 MG/ML 1ML VIAL (J1100 PER 1MG) As Ordered ONE (12:12)
[2021-02-08] MEDS ORDERED: DESFLURANE 240 ML INHALANT As Ordered ONE (12:12)
[2021-02-08] MEDS ORDERED: METOCLOPRAMIDE INJ 10MG/2ML VIAL (J2765 PER 1) As Ordered ONE ×2 (12:12→16:39)
[2021-02-08] MEDS ORDERED: ACETAMINOPHEN 1000MG 100ML IV BTL (OFIRMEV) (J0131 PER 10MG) As Ordered ONE (12:12)
[2021-02-08] MEDS ORDERED: ROCURONIUM BROMIDE 50 MG/5 ML VIAL As Ordered ONE ×3 (12:12→15:17)
[2021-02-08] MEDS ORDERED: MIDAZOLAM INJ 2MG/2ML VIAL (J2250 PER 1MG) As Ordered ONE (12:12)
[2021-02-08] MEDS ORDERED: fentaNYL 250 MCG/5 ML INJECTION (J3010) As Ordered ONE (12:12)
[2021-02-08] MEDS ORDERED: KETOROLAC 60MG 2ML VIAL As Ordered ONE (12:12)
[2021-02-08] MEDS ORDERED: SUGAMMADEX SODIUM 500 MG/5 ML VIAL (BRIDION) As Ordered ONE (12:12)
[2021-02-08] MEDS ORDERED: HYDROmorphone HCL 2 MG/ML 1ML VIAL (J1170) As Ordered ONE (13:16)
[2021-02-08] MEDS ORDERED: KETOROLAC 30 MG/ML 1ML VIAL IV PRN ×2 (15:50→16:45)
[2021-02-08] MEDS ORDERED: fentaNYL 100 MCG/2 ML INJECTION (J3010) As Ordered ONE (16:23)
[2021-02-08] MEDS: fentaNYL 100 MCG/2 ML INJECTION (J3010) IV PRN ×2 (16:25→16:30)
[2021-02-08] MEDS ORDERED: oxyCODONE 5MG TAB PO PRN (16:40)
[2021-02-08] MEDS ORDERED: ONDANSETRON 4MG/2ML VIAL IV PRN ×2 (16:40→16:45)
[2021-02-08] MEDS ORDERED: LR 1,000 ML IV SCH ×2 (16:40→16:45)
[2021-02-08] MEDS ORDERED: MORPHINE 4 MG/ML 1ML VIAL/SYRINGE (J2270) IV PRN (16:45)
[2021-02-08] MEDS ORDERED: METOCLOPRAMIDE INJ 10MG/2ML VIAL (J2765 PER 1) IV PRN (17:00)
[2021-02-08] MEDS ORDERED: PROMETHAZINE INJ 25 MG/ML VIAL (J2550) IV PRN (17:00)
[2021-02-08 17:30] VITALS: BP 138/87
[2021-02-08 17:50] VITALS: BP 138/87
[2021-02-08 18:00] VITALS: BP 135/85
[2021-02-08] MEDS: PERCOCET 5MG/325MG TAB PO PRN (18:25)
[2021-02-08 19:00] VITALS: BP 131/82
[2021-02-08 20:02] VITALS: BP 122/68
[2021-02-08] MEDS: DOCUSATE SODIUM 100MG CAPSULE PO SCH (20:32)
[2021-02-08 20:51] VITALS: BP 170/78
--- NOTE | 2021-02-08 23:38 | ROOPDOC ---
[facility] Report Of Operation Report of Operation DATE OF PROCEDURE: 02/08/21 OPERATIVE REPORT: Preoperative diagnosis: fibroids, pelvic pain. Postoperative diagnosis: Same. Procedure: Robotic-assisted laparoscopic myomectomy, Hysteroscopy Surgeon: Roderick Loza M.D. Shaker Tender: Mare To NP Findings: Markedly enlarged uterus with numerous fibroids. Irregular. Normal ovaries. Normal left fallopian tube. Right fallopian tube distorted by presence of fibroids. EBL: 700 mL's. Urine output: 200 mL's. Operative summary: Patient was taken to the operating room where general endotracheal anesthesia was induced. She was prepped and draped in sterile fashion in the dorsal lithotomy position. A Contreras Catheter was placed. A [employer] uterine manipulator was placed. A Periumbilical incision was made with a scalpel. . A Veress needle was placed through this incision. Intra-abdominal location of Veress needle was assessed with saline filled syringe. A pneumoperitoneum was created. The Veress needle was removed. An 8 mm trocar using the Visiport was inserted through this incision. Three 8 mm suprapubic ports were placed under direct visualization The patient was placed in Trendelenburg position. The da Kevin surgical robot was docked to the ports. A posterior uterine incision was created with monopolar endo-tim. A Tenaculum was used to grasped and elevate a posterior fibroids. Using Synchroseal, the fibroid was dissected and removed. Two posterior uterine incisions and one anterior uterine incision were created. A total of eight fibroids were removed. The fibroids were placed together on a V-lock suture so they did not get lost. All three uterine incisions were closed with V-lock suture. The fibroids were all placed in a larger endo-catch bag.They were removed through the periumbilical port. The incision had to be extended to remove the fibroids.The fascia of the periumbilical port was closed with O-Vicryl. Hysteroscopy was performed using a diagnostic hysteroscope. The endometrial cavi ty appeared normal. All instruments removed. The skin was closed with 4-0 Monocryl subcuticular sutures. Mare To NP assisted with all aspects of the procedure. She helped position the patient. She helped insert the ports and manipulate the uterus. She removed the specimen. RODERICK LOZA MD Feb 08, 2021 23:38
[2021-02-09 01:00] VITALS: BP 150/82
[2021-02-09 05:41] VITALS: BP 150/84
[2021-02-09] MEDS: PERCOCET 5MG/325MG TAB PO PRN (05:45)
[2021-02-09 06:23] LABS: HEMATOCRIT 34.9 % (36.0-47.0); MEAN CORPUSCULAR HEMOGLOBIN 29.4 pg (27.0-33.0); MEAN CORPUSCULAR HGB CONC 31.8 g/dl (32.0-36.5); MEAN CORPUSCULAR VOLUME 92.3 fl (80.0-96.0); PLATELET COUNT, AUTOMATED 311 10^3/uL (150-450); RED BLOOD COUNT 3.78 10^6/uL (4.00-5.40); WHITE BLOOD COUNT 10.4 10^3/uL (4.0-10.0)
[2021-02-09 06:25] LABS: HEMOGLOBIN 11.1 g/dl (12.0-15.5)
[2021-02-09] MEDS: DOCUSATE SODIUM 100MG CAPSULE PO SCH (08:26)
[2021-02-09] MEDS ORDERED: OXYC1TAB23 PO (09:10)
[2021-02-09] MEDS ORDERED: IBUP-1022 PO (09:11)
== END 2021-02-09 10:30 | disposition home or self-care (01) ==
LOC: M SDC 10:43 → M MS5PR 15:25 → M SDC 02-09 10:30
PROVIDERS: ATTEND Specialist
DX: D25.9 Leiomyoma of uterus, unspecified (principal); N85.2 Hypertrophy of uterus; R10.2 Pelvic and perineal pain; F32.9 Major depressive disorder, single episode, unspecified; F41.9 Anxiety disorder, unspecified; Z79.899 Other long term (current) drug therapy
CPT/HCPCS: 36415; 58546; 58555; 81025; 85027; 86850; 86900; 86901; 88304; 96360; J0131; J0690; J1100; J1170; J1885; J2250; J2405; J2765; J3010

== ENCOUNTER → 2021-09-30 | Outpatient (CLI) | payer OTHER ==
[~2021-09-30] MED LIST changes: +IBUP-1022 PO; -LR 1,000 ML IV ONE; +OXYC1TAB23 PO; -ceFAZolin SOD 2 GM in IV 1 EA IV ONE
[2021-09-30 13:37] LABS: BASO # 0.1 10^3/uL (0.0-0.2); BASO % 0.7 % (0.0-1.0); EOS % 0.5 % (0.0-3.0); HEMATOCRIT 41.5 % (36.0-47.0); HEMOGLOBIN 13.4 g/dl (12.0-15.5); LYMPH # 2.2 10^3/uL (1.5-5.0); LYMPH % 24.8 % (24.0-44.0); MEAN CORPUSCULAR HEMOGLOBIN 29.9 pg (27.0-33.0); MEAN CORPUSCULAR HGB CONC 32.3 g/dl (32.0-36.5); MEAN CORPUSCULAR VOLUME 92.6 fl (80.0-96.0); MONO # 0.6 10^3/uL (0.0-0.8); MONO % 6.4 % (2.0-8.0); NEUTROPHILS # 5.9 10^3/uL (1.5-8.5); NEUTROPHILS % 67.3 % (36.0-66.0); PLATELET COUNT, AUTOMATED 341 10^3/uL (150-450); RED BLOOD COUNT 4.48 10^6/uL (4.00-5.40); WHITE BLOOD COUNT 8.7 10^3/uL (4.0-10.0)
[2021-09-30 14:31] LABS: HEPATITIS C VIRUS ABY INDEX 0.1 INDEX (<0.8); HIV 1&2 SCREEN CENTAUR NEGATIVE (NEGATIVE)
[2021-09-30 15:19] LABS: GC DNA AMPLIFICATION NEGATIVE (NEGATIVE)
== END ==
LOC: M PLALAB 11:17
PROVIDERS: ATTEND Specialist
DX: Z34.81 Encounter for supervision of other normal pregnancy, first trimester (principal)

== ENCOUNTER 2021-11-22 08:55 | Emergency (ER) | payer OTHER ==
[~2021-11-22] VITALS: Ht 167.6 cm; Wt 99.5 kg
[2021-11-22] MEDS ORDERED: MULTTAB20 PO (09:05)
[2021-11-22 10:35] LABS: BASO % 0.4 % (0.0-1.0); EOS # 0.1 10^3/uL (0.0-0.5); EOS % 0.8 % (0.0-3.0); HEMATOCRIT 38.4 % (36.0-47.0); LYMPH % 13.2 % (24.0-44.0); MEAN CORPUSCULAR HGB CONC 33.9 g/dl (32.0-36.5); MEAN CORPUSCULAR VOLUME 88.5 fl (80.0-96.0); MONO # 0.4 10^3/uL (0.0-0.8); MONO % 5.3 % (2.0-8.0); NEUTROPHILS # 5.8 10^3/uL (1.5-8.5); NEUTROPHILS % 79.8 % (36.0-66.0); PLATELET COUNT, AUTOMATED 331 10^3/uL (150-450); RED BLOOD COUNT 4.34 10^6/uL (4.00-5.40); WHITE BLOOD COUNT 7.3 10^3/uL (4.0-10.0)
[2021-11-22 10:53] LABS: APPEARANCE, URINE CLEAR (CLEAR); BACTERIA, URINE AUTO NEGATIVE (NEGATIVE); BILIRUBIN, URINE AUTO NEGATIVE (NEGATIVE); BLOOD, URINE BLOOD NEGATIVE (NEGATIVE); COLOR, URINE STRAW (YELLOW); GLUCOSE, URINE (UA) AUTO NEGATIVE (NEGATIVE); KETONE, URINE AUTO NEGATIVE (NEGATIVE); LEUKOCYTE ESTERASE, URINE AUTO NEGATIVE (NEGATIVE); NITRITE, URINE AUTO NEGATIVE (NEGATIVE); PROTEIN, URINE AUTO NEGATIVE (NEGATIVE); RBC, URINE AUTO 0 /HPF (0-3); SPECIFIC GRAVITY URINE AUTO 1.004 (1.002-1.035); SQUAMOUS EPITHELIAL CELL UR AU 1 /HPF (0-6); UROBILINOGEN, URINE AUTO 0.2 mg/dL (0.0-2.0); WBC, URINE AUTO 1 /HPF (0-3)
[2021-11-22 10:58] LABS: BLOOD UREA NITROGEN 9 MG/DL (7-18); CALCIUM LEVEL 9.4 MG/DL (8.5-10.1); CARBON DIOXIDE LEVEL 23 MEQ/L (21-32); CHLORIDE LEVEL 110 MEQ/L (98-107); CREATININE FOR GFR 0.54 MG/DL (0.55-1.30); GLOMERULAR FILTRATION RATE > 60.0 (>60); GLUCOSE, FASTING 103 MG/DL (70-100); POTASSIUM SERUM 4.2 MEQ/L (3.5-5.1); SODIUM LEVEL 140 MEQ/L (136-145)
[2021-11-22 11:24] VITALS: BP 148/78
== END 2021-11-22 11:10 | disposition admitted as inpatient to this hospital (09) ==
LOC: EDBD 08:55 → M ED 08:55
DX: O42.912 Preterm premature rupture of membranes, unspecified as to length of time between rupture and onset of labor, second trimester (principal); Z79.899 Other long term (current) drug therapy; Z3A.16 16 weeks gestation of pregnancy

== ENCOUNTER 2021-11-22 11:32 | Inpatient (IN) | payer OTHER ==
[~2021-11-22] VITALS: Ht 167.6 cm; Wt 99.5 kg
[~2021-11-22 11:32] MED LIST changes: +MULTTAB20 PO
[2021-11-22 11:40] VITALS: BP 147/92
[2021-11-22] MEDS ORDERED: HOME MED LIST COMPLETE! XX SCH (12:20)
[2021-11-22 14:21] VITALS: BP 134/78
[2021-11-22] MEDS ORDERED: LIDOCAINE 1% MDV 20ML VIAL INFIL PRN (18:25)
[2021-11-22] MEDS ORDERED: ACETAMINOPHEN 500 MG TAB PO PRN (18:25)
[2021-11-22] MEDS ORDERED: hydrOXYzine 50 MG TAB PO SCH (21:00)
[2021-11-22] MEDS: buPROPion **SR TABLET** (ZYBAN) 150MG PO SCH (21:05)
[2021-11-22 22:38] VITALS: BP 130/65
[2021-11-23] VITALS (7 sets, daily range): BP systolic 125–152; BP diastolic 70–94
[2021-11-23 08:04] LABS: HEMATOCRIT 37.8 % (36.0-47.0); HEMOGLOBIN 12.7 g/dl (12.0-15.5); MEAN CORPUSCULAR HEMOGLOBIN 29.8 pg (27.0-33.0); MEAN CORPUSCULAR HGB CONC 33.6 g/dl (32.0-36.5); MEAN CORPUSCULAR VOLUME 88.7 fl (80.0-96.0); PLATELET COUNT, AUTOMATED 323 10^3/uL (150-450); RED BLOOD COUNT 4.26 10^6/uL (4.00-5.40)
[2021-11-23] MEDS ORDERED: PRENATAL VITAMINS CHEWABLE TABLET PO SCH (09:00)
[2021-11-23] MEDS: buPROPion **SR TABLET** (ZYBAN) 150MG PO SCH (09:21)
[2021-11-23] MEDS: miSOPROStol 50MCG 1/2 TABLET PV SCH ×2 (11:32→15:35)
[2021-11-23] MEDS ORDERED: PROMETHAZINE INJ 25 MG/ML VIAL (J2550) IV ONE (16:00)
[2021-11-23] MEDS ORDERED: BUTORPHANOL 2 MG/ML INJ (J0595) IV ONE (16:00)
[2021-11-23] MEDS ORDERED: IBUPROFEN 800 MG TAB PO ONE (20:30)
[2021-11-25] MEDS ORDERED: INFLUENZA QUADRIVALENT PF VACCINE 0.5ML SYRINGE IM ONE (09:00)
== END 2021-11-23 22:06 | disposition home or self-care (01) | DRG 951 ==
LOC: M LDO 11:32 → M LDI 18:31
PROVIDERS: ADMIT Advanced Practice Midwife; ATTEND Specialist
PROC: 3E0P7GC Introduction of Other Therapeutic Substance into Female Reproductive, Via Natural or Artificial Opening (ICD-10-PCS; principal; 2021-11-22)
DX: O42.012 Preterm premature rupture of membranes, onset of labor within 24 hours of rupture, second trimester (principal); O02.1 Missed abortion; Z20.822 Contact with and (suspected) exposure to COVID-19; Z3A.16 16 weeks gestation of pregnancy

== ENCOUNTER → 2021-12-30 | Outpatient (CLI) | payer OTHER ==
[~2021-12-30] MED LIST changes: +PROHANCE 279.3MG/ML 15ML VIAL ONE; +PROHANCE 279.3MG/ML 5ML VIAL ONE
== END ==
LOC: M PLAIMG 14:45
PROVIDERS: ATTEND Specialist
DX: D21.9 Benign neoplasm of connective and other soft tissue, unspecified (principal)

== ENCOUNTER → 2022-11-11 | Outpatient (CLI) | payer OTHER ==
[~2022-11-11] MED LIST changes: +BUPR-71 PO; -BUPR150T5 PO; -PROHANCE 279.3MG/ML 15ML VIAL ONE; -PROHANCE 279.3MG/ML 5ML VIAL ONE
== END ==
LOC: M RAD 16:00
PROVIDERS: ATTEND Specialist
DX: D21.9 Benign neoplasm of connective and other soft tissue, unspecified (principal)

== ENCOUNTER 2023-03-06 07:57 | Day surgery (SDC) | payer OTHER ==
[~2023-03-06] VITALS: Ht 167.6 cm; Wt 90.7 kg
[~2023-03-06 07:57] MED LIST changes: +BUPR1TAB56 PO; +ceFAZolin SOD 2 GM in IV 1 EA IV ONE
[2023-03-06] MEDS ORDERED: ROCURONIUM BROMIDE 50MG/5ML VIAL As Ordered ONE ×3 (08:47→12:06)
[2023-03-06] MEDS ORDERED: KETAMINE HCL 200MG/20ML VIAL As Ordered ONE (08:47)
[2023-03-06] MEDS ORDERED: propofoL 200 MG/20 ML VIAL As Ordered ONE (08:47)
[2023-03-06] MEDS ORDERED: LIDOCAINE 2% 100MG/5ML SDV (FOR ANES.) As Ordered ONE (08:47)
[2023-03-06] MEDS ORDERED: fentaNYL 100 MCG/2 ML INJECTION As Ordered ONE ×3 (08:48→13:26)
[2023-03-06] MEDS ORDERED: ONDANSETRON 4MG 2ML VIAL As Ordered ONE (08:48)
[2023-03-06] MEDS ORDERED: MIDAZOLAM INJ 2MG/2ML VIAL As Ordered ONE (08:48)
[2023-03-06] MEDS ORDERED: LR 1,000 ML IV SCH ×3 (08:50→14:20)
[2023-03-06 08:57] LABS: HEMOGLOBIN 13.3 g/dl (12.0-15.5); MEAN CORPUSCULAR HEMOGLOBIN 31.2 pg (27.0-33.0); MEAN CORPUSCULAR HGB CONC 32.4 g/dl (32.0-36.5); MEAN CORPUSCULAR VOLUME 96.2 fl (80.0-96.0); PLATELET COUNT, AUTOMATED 316 10^3/uL (150-450); RED BLOOD COUNT 4.26 10^6/uL (4.00-5.40); WHITE BLOOD COUNT 6.8 10^3/uL (4.0-10.0)
[2023-03-06] MEDS ORDERED: BUPIVACAINE HCL 0.25% 30ML VIAL As Ordered ONE (09:39)
[2023-03-06] MEDS ORDERED: VASOPRESSIN INJ 20UNITS/ML 1ML VIAL As Ordered ONE (09:40)
[2023-03-06] MEDS ORDERED: ACETAMINOPHEN 1000MG 100ML IV BAG As Ordered ONE (10:26)
[2023-03-06] MEDS ORDERED: METHYLERGONOVINE MALEATE 0.2MG/ML 1ML VIAL As Ordered ONE (10:44)
[2023-03-06] MEDS ORDERED: CARBOPROST TROMETHAMINE 250 MCG/ML AMP As Ordered ONE (10:44)
[2023-03-06] MEDS ORDERED: fentaNYL 100 MCG/2 ML INJECTION IV PRN (14:10)
[2023-03-06] MEDS ORDERED: HYDROMORPHONE HCL 0.5 MG/ 0.5 ML SYRINGE IV PRN (14:10)
[2023-03-06] MEDS ORDERED: ONDANSETRON 4MG 2ML VIAL IV PRN (14:10)
[2023-03-06] MEDS ORDERED: oxyCODONE 5MG TAB PO PRN (14:10)
[2023-03-06] MEDS ORDERED: OXYC1TAB23 PO ×2 (14:32→16:25)
[2023-03-06] MEDS ORDERED: IBUP-1022 PO ×2 (14:33→16:26)
[2023-03-06] MEDS: PERCOCET 5MG/325MG TAB PO PRN ×2 (16:00→22:11)
[2023-03-06 16:35] VITALS: BP 154/86
[2023-03-06 17:05] VITALS: BP 139/81
[2023-03-06 18:05] VITALS: BP 145/87
[2023-03-06 19:05] VITALS: BP 145/95
[2023-03-06 22:00] VITALS: BP 153/74
[2023-03-06] MEDS: SIMETHICONE 80MG CHEW TAB PO PRN (22:11)
[2023-03-07] MEDS: SIMETHICONE 80MG CHEW TAB PO PRN (01:37)
[2023-03-07 02:00] VITALS: BP 147/88
[2023-03-07 06:15] VITALS: BP 149/87
[2023-03-07] MEDS: PERCOCET 5MG/325MG TAB PO PRN (06:31)
[2023-03-07 06:38] LABS: HEMATOCRIT 34.4 % (36.0-47.0); HEMOGLOBIN 11.5 g/dl (12.0-15.5); MEAN CORPUSCULAR HGB CONC 33.4 g/dl (32.0-36.5); MEAN CORPUSCULAR VOLUME 95.8 fl (80.0-96.0); PLATELET COUNT, AUTOMATED 251 10^3/uL (150-450); RED BLOOD COUNT 3.59 10^6/uL (4.00-5.40); WHITE BLOOD COUNT 13.4 10^3/uL (4.0-10.0)
== END 2023-03-07 09:27 | disposition home or self-care (01) ==
LOC: M SDC 07:57 → M MS5PR 16:30 → M SDC 03-07 09:27
PROVIDERS: ATTEND Specialist
DX: D25.9 Leiomyoma of uterus, unspecified (principal); N96 Recurrent pregnancy loss; R10.2 Pelvic and perineal pain; F41.9 Anxiety disorder, unspecified; F32.A Depression, unspecified; J30.1 Allergic rhinitis due to pollen; J30.89 Other allergic rhinitis; Z79.899 Other long term (current) drug therapy; Z87.891 Personal history of nicotine dependence
CPT/HCPCS: 36415; 36430; 58546; 81025; 85027; 86850; 86900; 86901; 86920; 88305; J0131; J0690; J1100; J1170; J2250; J2405; J3010; P9016; S0020; S2900

== ENCOUNTER → 2024-03-28 | Outpatient (CLI) | payer OTHER ==
[~2024-03-28] MED LIST changes: -ceFAZolin SOD 2 GM in IV 1 EA IV ONE
[2024-03-28 13:35] LABS: HEMATOCRIT 39.5 % (36.0-47.0); HEMOGLOBIN 13.1 g/dl (12.0-15.5); MEAN CORPUSCULAR HEMOGLOBIN 30.4 pg (27.0-33.0); MEAN CORPUSCULAR HGB CONC 33.2 g/dl (32.0-36.5); MEAN CORPUSCULAR VOLUME 91.6 fl (80.0-96.0); PLATELET COUNT, AUTOMATED 329 10^3/uL (150-450); RED BLOOD COUNT 4.31 10^6/uL (4.00-5.40); WHITE BLOOD COUNT 8.4 10^3/uL (4.0-10.0)
[2024-03-28 14:12] LABS: HIV 1&2 SCREEN NEGATIVE (NEGATIVE)
[2024-03-28 14:19] LABS: HEPATITIS C VIRUS ABY INDEX < 0.02 INDEX (<0.8)
== END ==
LOC: M PLALAB 09:22
PROVIDERS: ATTEND Specialist
DX: Z34.81 Encounter for supervision of other normal pregnancy, first trimester (principal)

== ENCOUNTER 2024-12-12 06:06 | Day surgery (SDC) | payer OTHER ==
[~2024-12-12] VITALS: Ht 165.1 cm; Wt 101.6 kg
[~2024-12-12 06:06] MED LIST changes: +PRENTAB53 PO; +THERTAB52 PO; +TUMS500C PO; +WELL100T2 PO
[2024-12-12] MEDS ORDERED: NS (Normal Saline) 0.9% 1,000 ML IV SCH ×2 (06:45→09:35)
[2024-12-12 06:54] LABS: HEMATOCRIT 39.3 % (36.0-47.0); HEMOGLOBIN 13.2 g/dl (12.0-15.5); MEAN CORPUSCULAR HEMOGLOBIN 30.6 pg (27.0-33.0); MEAN CORPUSCULAR HGB CONC 33.6 g/dl (32.0-36.5); PLATELET COUNT, AUTOMATED 311 10^3/uL (150-450); RED BLOOD COUNT 4.32 10^6/uL (4.00-5.40); WHITE BLOOD COUNT 8.2 10^3/uL (4.0-10.0)
[2024-12-12] MEDS ORDERED: MIDAZOLAM INJ 2MG/2ML VIAL As Ordered ONE (07:10)
[2024-12-12] MEDS ORDERED: ONDANSETRON 4MG 2ML VIAL As Ordered ONE (07:11)
[2024-12-12] MEDS ORDERED: ACETAMINOPHEN 1000MG/100ML IV BAG As Ordered ONE (07:11)
[2024-12-12] MEDS ORDERED: propofoL 200 MG/20 ML VIAL As Ordered ONE (07:11)
[2024-12-12] MEDS ORDERED: LIDOCAINE 2% 100MG/5ML SDV (FOR ANES.) As Ordered ONE (07:11)
[2024-12-12] MEDS ORDERED: fentaNYL 100 MCG/2 ML INJECTION As Ordered ONE (07:11)
[2024-12-12] MEDS ORDERED: ROCURONIUM BROMIDE 50MG/5ML VIAL As Ordered ONE (07:11)
[2024-12-12] MEDS: ceFAZolin SOD 2 GM in IV 1 EA IV ONE (07:40)
[2024-12-12] MEDS ORDERED: SUGAMMADEX SODIUM 500 MG/5 ML VIAL (BRIDION) As Ordered ONE (08:03)
[2024-12-12] MEDS ORDERED: KETOROLAC 60MG 2ML VIAL As Ordered ONE (08:03)
[2024-12-12] MEDS ORDERED: fentaNYL 100 MCG/2 ML INJECTION IV PRN (09:35)
[2024-12-12] MEDS ORDERED: ONDANSETRON 4MG 2ML VIAL IV PRN (09:35)
[2024-12-12] MEDS ORDERED: HYDROMORPHONE HCL 0.5 MG/ 0.5 ML SYRINGE IV PRN (09:35)
[2024-12-12] MEDS ORDERED: oxyCODONE 5MG TAB PO PRN (09:35)
[2024-12-12 10:31] VITALS: BP 141/88; TEMP 99.3; O2SAT 96
[2024-12-12] MEDS ORDERED: GLYCOPYRROLATE INJ 0.2 MG/ML 2 ML VIAL As Ordered ONE (10:39)
== END 2024-12-12 12:16 | disposition home or self-care (01) ==
LOC: M SDC 06:06
PROVIDERS: ATTEND Specialist
DX: D25.1 Intramural leiomyoma of uterus (principal); D25.2 Subserosal leiomyoma of uterus; N83.8 Other noninflammatory disorders of ovary, fallopian tube and broad ligament; N85.8 Other specified noninflammatory disorders of uterus; N73.6 Female pelvic peritoneal adhesions (postinfective); N92.0 Excessive and frequent menstruation with regular cycle; J30.89 Other allergic rhinitis; Z79.899 Other long term (current) drug therapy; Z90.89 Acquired absence of other organs; Z90.49 Acquired absence of other specified parts of digestive tract; F41.9 Anxiety disorder, unspecified; F32.9 Major depressive disorder, single episode, unspecified; Z87.891 Personal history of nicotine dependence
CPT/HCPCS: 36415; 58571; 81025; 85027; 86850; 86900; 86901; 88307; J0131; J0665; J0690; J1100; J1885; J2250; J2405; J3010; S2900

== ENCOUNTER 2024-12-17 10:02 | Observation (INO) | payer OTHER ==
[~2024-12-17] VITALS: Ht 167.6 cm; Wt 101.0 kg
[2024-12-17 12:00] LABS: APPEARANCE, URINE CLEAR (CLEAR); BACTERIA, URINE AUTO NEGATIVE (NEGATIVE); BILIRUBIN, URINE AUTO NEGATIVE (NEGATIVE); BLOOD, URINE BLOOD NEGATIVE (NEGATIVE); COLOR, URINE YELLOW (YELLOW); GLUCOSE, URINE (UA) AUTO NEGATIVE (NEGATIVE); KETONE, URINE AUTO NEGATIVE (NEGATIVE); LEUKOCYTE ESTERASE, URINE AUTO NEGATIVE (NEGATIVE); NITRITE, URINE AUTO NEGATIVE (NEGATIVE); PROTEIN, URINE AUTO NEGATIVE (NEGATIVE); RBC, URINE AUTO 0 /HPF (0-3); SPECIFIC GRAVITY URINE AUTO 1.004 (1.002-1.035); SQUAMOUS EPITHELIAL CELL UR AU 1 /HPF (0-6); UROBILINOGEN, URINE AUTO 0.2 mg/dL (0.0-2.0); WBC, URINE AUTO 0 /HPF (0-3)
[2024-12-17 12:01] LABS: BASO # 0.1 10^3/uL (0.0-0.2); BASO % 0.3 % (0.0-1.0); EOS # 0.2 10^3/uL (0.0-0.5); EOS % 1.3 % (0.0-3.0); HEMOGLOBIN 13.4 g/dl (12.0-15.5); LYMPH # 1.7 10^3/uL (1.5-5.0); LYMPH % 9.1 % (24.0-44.0); MEAN CORPUSCULAR HEMOGLOBIN 30.7 pg (27.0-33.0); MEAN CORPUSCULAR HGB CONC 33.5 g/dl (32.0-36.5); MEAN CORPUSCULAR VOLUME 91.5 fl (80.0-96.0); MONO # 1.1 10^3/uL (0.0-0.8); NEUTROPHILS # 15.1 10^3/uL (1.5-8.5); NEUTROPHILS % 82.5 % (36.0-66.0); PLATELET COUNT, AUTOMATED 389 10^3/uL (150-450); RED BLOOD COUNT 4.37 10^6/uL (4.00-5.40); WHITE BLOOD COUNT 18.3 10^3/uL (4.0-10.0)
[2024-12-17] MEDS: NS (Normal Saline) 0.9% 1,000 ML IV ONE (12:27)
[2024-12-17 12:29] LABS: BLOOD UREA NITROGEN 9 MG/DL (9-23); CALCIUM LEVEL 9.6 MG/DL (8.5-10.1); CARBON DIOXIDE LEVEL 27 MMOL/L (20-31); CHLORIDE LEVEL 100 MMOL/L (98-107); CREATININE FOR GFR 0.79 MG/DL (0.55-1.30); GLOMERULAR FILTRATION RATE > 60.0 (>60); GLUCOSE, FASTING 93 MG/DL (60-100); POTASSIUM SERUM 4.4 MMOL/L (3.5-5.1); SODIUM LEVEL 137 MMOL/L (136-145)
[2024-12-17 12:49] LABS: PROCALCITONIN 0.13 ng/ml
[2024-12-17] MEDS ORDERED: ISOVUE-370 76% 100ML VIAL As Ordered ONE (13:28)
[2024-12-17] MEDS ORDERED: metroNIDAZOLE (FLAGYL) 500MG TABLET PO SCH (14:00)
[2024-12-17] MEDS: PIPERACILLIN/TAZOBACTAM SOD 4.5 GM in DEXTROSE 5% (D5W) ADV/MINI-BAG 50 ML IV ONE (15:27)
[2024-12-17] MEDS ORDERED: ACETAMINOPHEN 325 MG TAB PO PRN (15:40)
[2024-12-17] MEDS ORDERED: MAALOX 30 ML SUSP *UDC PO PRN (15:40)
[2024-12-17] MEDS ORDERED: HOME MED LIST COMPLETE! XX SCH (15:55)
[2024-12-17] MEDS: VANCOMYCIN HCL 2,000 MG, VIAL MATE ADAPTER 1 EACH in NS 500 ML IV SCH (16:30)
[2024-12-17 19:00] VITALS: BP 135/82; TEMP 97.8; O2SAT 98
[2024-12-17] MEDS: LR 1,000 ML IV SCH (19:09)
[2024-12-17 20:37] VITALS: BP 152/92; TEMP 99; O2SAT 99
[2024-12-17] MEDS ORDERED: PIPERACILLIN/TAZOBACTAM SOD 4.5 GM in DEXTROSE 5% (D5W) ADV/MINI-BAG 50 ML IV SCH (21:00)
[2024-12-17] MEDS: buPROPion (WELLBUTRIN SR) 100 MG SR TAB PO SCH (21:07)
[2024-12-17] MEDS: metroNIDAZOLE (FLAGYL) 500MG TABLET PO SCH (21:08)
[2024-12-17] MEDS: cefTRIAXone SOD 2 GM in DEXTROSE 5% (D5W) ADV/MINI-BAG 50 ML IV SCH (21:17)
[2024-12-17] MEDS: DOCUSATE SODIUM 100MG CAPSULE PO SCH (23:03)
[2024-12-17] MEDS: MOM 30ML SUSPENSION UDC PO PRN (23:03)
[2024-12-18] MEDS: VANCOMYCIN HCL 1,500 MG, VIAL MATE ADAPTER 1 EACH in NS 500 ML IV SCH (04:33)
[2024-12-18 04:45] VITALS: BP 132/83; TEMP 98.7; O2SAT 97
[2024-12-18 06:18] LABS: BASO # 0.1 10^3/uL (0.0-0.2); BASO % 0.4 % (0.0-1.0); EOS # 0.3 10^3/uL (0.0-0.5); EOS % 2.2 % (0.0-3.0); HEMATOCRIT 36.6 % (36.0-47.0); LYMPH # 1.5 10^3/uL (1.5-5.0); LYMPH % 10.3 % (24.0-44.0); MEAN CORPUSCULAR HEMOGLOBIN 30.7 pg (27.0-33.0); MEAN CORPUSCULAR HGB CONC 32.8 g/dl (32.0-36.5); MEAN CORPUSCULAR VOLUME 93.6 fl (80.0-96.0); MONO # 0.9 10^3/uL (0.0-0.8); NEUTROPHILS # 11.4 10^3/uL (1.5-8.5); NEUTROPHILS % 80.3 % (36.0-66.0); PLATELET COUNT, AUTOMATED 350 10^3/uL (150-450); RED BLOOD COUNT 3.91 10^6/uL (4.00-5.40); WHITE BLOOD COUNT 14.2 10^3/uL (4.0-10.0)
[2024-12-18] MEDS ORDERED: DIBUCAINE 1% OINTMENT 30GM TOP PRN (07:35)
[2024-12-18] MEDS ORDERED: METHYLERGONOVINE MALEATE 0.2 MG TAB PO PRN (07:35)
[2024-12-18] MEDS ORDERED: ACETAMINOPHEN 500 MG TAB PO PRN (07:35)
[2024-12-18] MEDS ORDERED: IBUPROFEN 600MG TAB PO PRN (07:35)
[2024-12-18] MEDS ORDERED: ACETAMINOPHEN 325 MG TAB PO PRN (07:35)
[2024-12-18] MEDS ORDERED: RHOGAM 300MCG (1500IU) INJ IM SCH (07:35)
[2024-12-18] MEDS ORDERED: IBUPROFEN 800 MG TAB PO PRN (07:35)
[2024-12-18] MEDS ORDERED: DOCUSATE SODIUM 100MG CAPSULE PO PRN (07:35)
[2024-12-18 08:00] VITALS: BP 142/85; TEMP 98.8; O2SAT 100
[2024-12-18] MEDS ORDERED: PRENATAL VITAMINS CHEWABLE TABLET PO SCH (09:00)
[2024-12-18] MEDS: ENOXAPARIN 40MG/0.4ML SYRINGE (J1650 PER 10MG) SC SCH (09:00)
[2024-12-18 16:00] VITALS: BP 133/73; TEMP 99.1; O2SAT 99
[2024-12-18] MEDS ORDERED: AMOX875T2 PO (16:51)
[2024-12-20] MEDS ORDERED: MEASLES,MUMPS,RUBELLA VACCINE INJ (MMR-II) SC.IMMUN ONE (09:00)
== END 2024-12-18 18:15 | disposition home or self-care (01) ==
LOC: M ED 10:02 → M ED INP 10:03 → INTOOBSV 16:20 → OBSVTOIN 16:20 → M PED 18:30
PROVIDERS: ADMIT Specialist; ATTEND Specialist
DX: T81.43XA Infection following a procedure, organ and space surgical site, initial encounter (principal); F32.A Depression, unspecified; Y83.0 Surgical operation with transplant of whole organ as the cause of abnormal reaction of the patient, or of later complication, without mention of misadventure at the time of the procedure; F41.9 Anxiety disorder, unspecified; Z79.899 Other long term (current) drug therapy
CPT/HCPCS: 36415; 74177; 80048; 81001; 83605; 84145; 85025; 86140; 86850; 86900; 86901; 87070; 87205; 96365; 96366; 96367; 96368; 96375; 99285; J0696; J2543; J3370; J3371; Q9967